=== PATIENT | male | born 1985 | race Caucasian/White ===

== ENCOUNTER → 2023-11-12 | Outpatient (CLI) | payer OTHER | END | disposition home or self-care (01) | LOC: RADPV 09:57 | PROVIDERS: ATTEND Chiropractor | DX: R07.9 Chest pain, unspecified (principal); I48.91 Unspecified atrial fibrillation; M84.30XA Stress fracture, unspecified site, initial encounter for fracture; M79.89 Other specified soft tissue disorders; R94.31 Abnormal electrocardiogram [ECG] [EKG] | CPT/HCPCS: 71046; 93005; 93306 ==